=== PATIENT | female | born 1955 | race Caucasian/White ===

== ENCOUNTER 2020-02-16 04:56 | Day surgery (SDC) | payer OTHER ==
[2020-02-16 09:52] VITALS: BMI 30.9
[2020-02-16 10:46] VITALS: TEMP 97.5
[2020-02-16 11:26] VITALS: BP 130/51; PULSE 46
== END 2020-02-16 11:50 | disposition home or self-care (01) ==
LOC: JASU-ENDO 04:56
PROVIDERS: ATTEND Internal Medicine Gastroenterology
PROC: 0DJD8ZZ Inspection of Lower Intestinal Tract, Via Natural or Artificial Opening Endoscopic (ICD-10-PCS; principal; 2020-02-16 10:00)
DX: Z86.010 Personal history of colon polyps (principal); K57.30 Diverticulosis of large intestine without perforation or abscess without bleeding; K64.8 Other hemorrhoids